=== PATIENT | female | born 2000 | race Caucasian/White ===

== ENCOUNTER 2019-07-15 10:04 | Emergency (ER) | payer BC ==
--- OUTSIDE RECORDS SUMMARY | 2019-07-15 10:28 | XMS REPORT | Continuity of Care Document ---
:2000 External Reference #:[id number] Author Name Isiah Ash JR, MD Address [address] [place] [address] Problems Active Problems Provider Date Gastroesophageal reflux disease Isiah Ash JR, MD Onset: 03/25/2018 Social History Type Date Description Comments Sex Unknown Tobacco Use Reviewed: 02/03/19 Never Smoked Cigarettes ETOH Use Rarely consumes alcohol Tobacco Use Reviewed: 02/03/19 Patient has never smoked Smoking Status Reviewed: 02/03/19 Patient has never smoked Allergies, Adverse Reactions, Alerts Active Allergies Reaction Severity Comments Date Amoxicillin Hives 03/25/2018 Cephalexin Hives 03/25/2018 Penicillin 06/26/2019 Medications Active Medications SIG Qnty Indications Ordering Date Provider Iron 1 by mouth Isiah Ash 08/29/2018 325(65Fe) mg Tablets every day MD TWIN Levocetirizine 1 by mouth 60tabs Isiah Ash 03/25/2018 Dihydrochloride every day MD TWIN 5mg Tablets Mometasone Furoate 2 sp each 17gm Isiah Ash 03/25/2018 50mcg/Act nostril every MD TWIN Suspension day Multivitamin Adult 1 by mouth 90tabs Isiah Ash 03/25/2018 Tablets every day MD TWIN Immunizations CPT Code Status Date Vaccine Lot # [id number] Given 04/04/2018 Flu, Multi-Dose Vial W/Preservative (Age 6Mo And [id number] Up)Quad 0.5 64314 Given 01/10/2017 Hepatitis A Vaccine Peds/Adoles. (To Age 19) 2 Dose Schedule 09075 Given 01/10/2017 Bexsero Meningococcal Vacc 2 Dose Schedule 58522 Given 09/21/2015 Menactra - Meningococcal Conjugate Vaccine 31897 Given 05/29/2015 Flu, Multi-Dose Vial W/Preservative (Age 6Mo And Up)Quad 0.5 21206 Given 11/30/2013 Gardasil 9, HPV Nonavalent 64730 Given 05/20/2013 Gardasil 9, HPV Nonavalent 27445 Given 03/11/2013 Gardasil 9, HPV Nonavalent 61394 Given 10/28/2009 Menactra - Meningococcal Conjugate Vaccine 49628 Given 10/27/2009 Adacel - Tdap 02087 Given 11/13/2006 Varicella (Chicken Pox) Vaccine 06829 Given 11/06/2003 MMR Vaccine 12414 Given 11/06/2003 Daptacel - DTaP Vaccine 24067 Given 11/06/2003 Clvnbdux-JYyZ-ovb/hIB 31595 Given 11/08/2000 Pneumococcal Vaccine - Prevnar 13 84449 Given 04/06/2000 Pneumococcal Vaccine - Prevnar 13 10398 Given 01/20/2000 Hib PRP-T Conjugate 4 Dose Schedule 21039 Given 01/20/2000 Shwymaaf-YShP-fzm/hIB 84191 Given 01/20/2000 MMR Vaccine 85376 Given 12/20/1999 Daptacel - DTaP Vaccine 57729 Given 10/21/1999 Varicella (Chicken Pox) Vaccine 27785 Given 07/22/1999 Hepatitis B Vaccine Pediatric/Adolescent 75157 Given 04/14/1999 Daptacel - DTaP Vaccine 25170 Given 04/14/1999 Hib PRP-T Conjugate 4 Dose Schedule 45401 Given 02/18/1999 Daptacel - DTaP Vaccine 94164 Given 02/18/1999 Girukccm-QPeC-vrs/hIB 51514 Given 02/18/1999 Hib PRP-T Conjugate 4 Dose Schedule 42058 Given 1998 Hepatitis B Vaccine Pediatric/Adolescent 64990 Given 1998 Daptacel - DTaP Vaccine 01291 Given 1998 Iuseahop-YOpD-ofc/hIB 12351 Given 1998 Rotateq - Rotavirus Vaccine Tetravalent Oral 59882 Given 1998 Hib PRP-T Conjugate 4 Dose Schedule 90376 Given 1998 Hepatitis B Vaccine Pediatric/Adolescent Vital Signs Date Vital Result Comment 06/26/2019 3:24pm BP Systolic 102 mmHg BP Diastolic 62 mmHg Heart Rate 70 /min Body Temperature 98.3 F Respiratory Rate 16 /min Weight 101.00 lb Weight 45.814 kg Height 60. inches 5'0" BMI (Body Mass Index) 19.7 kg/m2 02/03/2019 8:04pm BP Systolic 102 mmHg BP Diastolic 70 mmHg Heart Rate 70 /min Body Temperature 99.3 F Respiratory Rate 18 /min Weight 104.00 lb Weight 47.174 kg Height 60. inches 5'0" BMI (Body Mass Index) 20.3 kg/m2 Results Test Acquired Date Facility Test Result H/L Range Note CBC/Automated 06/20/2019 [facility] WBC 5.93 k/uL 4.60-10.20 Differential Abs Neut 3.69 2.00-7.50 % Neut 62.2 % 37.0-80.0 Abs Lymphs 1.42 K/UL 1.20-4.80 % Lymphs 24.0 % 10.0-50.0 Abs Monos 0.558 0.000-0.900 % Monos 9.42 % 0.00-12.00 Abs Eos 0.185 0.000-0.700 % Eos 3.11 % 0.00-7.00 Abs Basos 0.072 0.000-0.200 % Baso 1.22 % 0.00-4.00 RBC 5.39 m/uL 4.04-6.13 Hemoglobin 14.2 g/dL 12.2-18.1 Hematocrit 44.9 % 37.7-47.0 MCV 83.3 fL 80.0-97.0 MCH 26.3 pg Low 27.0-31.2 MCHC 31.6 g/dL Low 31.8-35.4 RDW 13.1 % 11.6-14.8 Platelet 274 K/uL 142-424 MPV 10.3 fL 0.0-99.9 Laboratory test finding 06/20/2019 [facility] Iron 70.00 g/dL 25.00- 156.00 Laboratory test finding 02/05/2019 [facility] Iron 166.00 g/dL High 25.00-156.00 Iron Binding Capacity 415 g/dL (250-450) 1 CBC/Automated Differential 02/05/2019 [facility]BC 8.35 k/uL 4.60- 10.20 Abs Neut 5.83 2.00-7.50 % Neut 69.8 % 37.0-80.0 Abs Lymphs 1.53 K/UL 1.20-4.80 % Lymphs 18.4 % 10.0-50.0 Abs Monos 0.767 0.000-0.900 % Monos 9.18 % 0.00-12.00 Abs Eos 0.150 0.000-0.700 % Eos 1.79 % 0.00-7.00 Abs Basos 0.070 0.000-0.200 % Baso 0.83 % 0.00-4.00 RBC 5.32 m/uL 4.04-6.13 Hemoglobin 14.4 g/dL 12.2-18.1 Hematocrit 44.5 % 37.7-47.0 MCV 83.7 fL 80.0-97.0 MCH 27.1 pg 27.0-31.2 MCHC 32.3 g/dL 31.8-35.4 RDW 12.1 % 11.6-14.8 Platelet 337 K/uL 142-424 MPV 8.3 fL 0.0-99.9 Laboratory test 02/03/2019 [facility] Iron Binding 382 g/dL (250-450) 2 finding Capacity Iron 37.00 g/dL 25.00-156.00 Comprehensive Metabolic 02/03/2019 [facility] Glucose 80.00 mg/dL 70.00- 110.00 Panel Urea Nitrogen 10 mg/dL 7-19 Creatinine 0.7 mg/dL 0.6-1.1 GFR 116.88 mL/min 3 Sodium 137 mmol/L 136-145 Potassium 4.2 mmol/L 3.5-5.1 Chloride 104 mmol/L 98-107 Total Protein 7.1 g/dL 6.4-8.3 Albumin 4.30 g/dL 3.30-5.00 Alanine Aminotransferase 14 U/L 0-55 Aspartate Aminotransferase 17 U/L 5-34 Alkaline Phosphatase 67 U/L 40-150 Carbon Dioxide 25.00 mmol/L 22.00-31.00 Albumin/Globulin 1.54 Ratio Osmolality 282.02 275.00-295.00 Calcium 9.60 mg/dL 8.90-10.40 Total Bilirubin 0.4 mg/dL 0.2-1.2 Globulin 2.80 2.30-4.20 BUN/Creatinine 14.71 Ratio CBC/Automated Differential 01/16/2019 [facility] WBC 9.26 k/uL 4.60- 10.20 Abs Neut 5.80 2.00-7.50 % Neut 62.7 % 37.0-80.0 Abs Lymphs 2.32 K/UL 1.20-4.80 % Lymphs 25.1 % 10.0-50.0 Abs Monos 0.876 0.000-0.900 % Monos 9.46 % 0.00-12.00 Abs Eos 0.166 0.000-0.700 % Eos 1.79 % 0.00-7.00 Abs Basos 0.094 0.000-0.200 % Baso 1.01 % 0.00-4.00 RBC 5.51 m/uL 4.04-6.13 Hemoglobin 15.2 g/dL 12.2-18.1 Hematocrit 45.9 % 37.7-47.0 MCV 83.2 fL 80.0-97.0 MCH 27.6 pg 27.0-31.2 MCHC 33.1 g/dL 31.8-35.4 RDW 12.6 % 11.6-14.8 Platelet 292 K/uL 142-424 MPV 9.4 fL 0.0-99.9 Comprehensive Metabolic 01/16/2019 [facility] Glucose 74.00 mg/dL 70.00- 110.00 Panel Urea Nitrogen 9 mg/dL 7-19 Creatinine 0.7 mg/dL 0.6-1.1 GFR 113.09 mL/min 4 Sodium 138 mmol/L 136-145 Potassium 4.5 mmol/L 3.5-5.1 Chloride 104 mmol/L 98-107 Total Protein 7.7 g/dL 6.4-8.3 Alb P 4.60 g/dL 3.30-5.00 Alanine Aminotransferase 12 U/L 0-55 Aspartate Aminotransferase 15 U/L 5-34 Alkaline Phosphatase 77 U/L 40-150 Carbon Dioxide 28.00 mmol/L 22.00-31.00 Albumin/Globulin 1.48 Ratio Osmolality 283.33 275.00-295.00 Calcium 10.30 mg/dL 8.90-10.40 Total Bilirubin 0.4 mg/dL 0.2-1.2 Globulin 3.10 2.30-4.20 BUN/Creatinine 12.86 Ratio 1 Unless otherwise specified, testing performed by [facility] [address] [place] [id number] 2 Unless otherwise specified, testing performed by [facility] [address] [place] [id number] 3 NORMAL FUNCTION OR MILD RENAL DISEASE:>60 ml/min ADVANCED RENAL DISEASE:15-59 ml/min RENAL FAILURE:<15 ml/min 4 NORMAL FUNCTION OR MILD RENAL DISEASE:>60 ml/min ADVANCED RENAL DISEASE:15-59 ml/min RENAL FAILURE:<15 ml/min Procedures Description No Information Available Medical Devices Description No Information Available Encounters Type Date Location Provider Dx Diagnosis Office Visit 06/26/2019 [address] Isiah Ash JR E61.1 Iron deficiency 2:30p MD Office Visit 02/03/2019 [address] Isiah Ash JR E61.1 Iron deficiency 3:15p MD Assessments Date Code Description Provider 06/26/2019 E61.1 Iron deficiency Isiah Ash JR, MD 06/20/2019 E61.1 Iron deficiency Isiah Ash JR, MD 02/05/2019 E61.1 Iron deficiency Isiah Ash JR, MD 02/03/2019 M79.601 Pain in right arm Omar Lehman MD 02/03/2019 E61.1 Iron deficiency Isiah Ash JR, MD 01/16/2019 E61.1 Iron deficiency Isiah Ash JR, MD 01/16/2019 N92.0 Excessive and frequent menstruation with Isiah Ash JR, MD regular cycle 01/16/2019 K21.9 Gastro-esophageal reflux disease without Isiah Ash JR, MD esophagitis Plan of Treatment Future Appointment(s):12/15/2019 2:00 pm - Isiah Ash JR, MD at [address]12/05/2019 10:00 am - Isiah Ash JR, MD at [address]06/26/2019 - Isiah Ash JR, MDE61.1 Iron deficiencyNew Labs:CBC/Automated Differential , Scheduled: 06/26/19Iron, Scheduled: 06/26/19Iron Binding Capacity[I], Scheduled: 06/26/19Comments:Continue taking the iron supplement and the multivitamin. we will redraw iron panel today Functional Status Functional Condition Comment Date Status Glasses Active Mental Status Description No Information Available Referrals Description No Information Available
--- OUTSIDE RECORDS SUMMARY | 2019-07-15 10:28 | XMS REPORT | Continuity of Care Document ---
:2000 External Reference #:[id number] Author Name Isiah Ash JR, MD Address [address] [place] [address] Problems Active Problems Provider Date Gastroesophageal reflux [...] CPT Code Status Date Vaccine Lot # [id number] Given 04/04/2018 Flu, Multi-Dose Vial W/Preservative (Age 6Mo And [id number] Up)Quad 0.5 27659 Given 01/10/2017 Hepatitis A Vaccine Peds/Adoles. (To Age 19) 2 Dose Schedule 51270 Given 01/10/2017 Bexsero Meningococcal Vacc 2 Dose Schedule 02359 Given 09/21/2015 Menactra - Meningococcal Conjugate Vaccine 22808 Given 05/29/2015 Flu, Multi-Dose Vial W/Preservative (Age 6Mo And Up)Quad 0.5 78457 Given 11/30/2013 Gardasil 9, HPV Nonavalent 68123 Given 05/20/2013 Gardasil 9, HPV Nonavalent 74388 Given 03/11/2013 Gardasil 9, HPV Nonavalent 14123 Given 10/28/2009 Menactra - Meningococcal Conjugate Vaccine 28189 Given 10/27/2009 Adacel - Tdap 55180 Given 11/13/2006 Varicella (Chicken Pox) Vaccine 54545 Given 11/06/2003 MMR Vaccine 93913 Given 11/06/2003 Daptacel - DTaP Vaccine 17290 Given 11/06/2003 Xsegahxi-OVlT-tmk/hIB 13561 Given 11/08/2000 Pneumococcal Vaccine - Prevnar 13 78011 Given 04/06/2000 Pneumococcal Vaccine - Prevnar 13 60809 Given 01/20/2000 Hib PRP-T Conjugate 4 Dose Schedule 31578 Given 01/20/2000 Oeyuajpa-YLyB-zii/hIB 70905 Given 01/20/2000 MMR Vaccine 75279 Given 12/20/1999 Daptacel - DTaP Vaccine 14172 Given 10/21/1999 Varicella (Chicken Pox) Vaccine 29107 Given 07/22/1999 Hepatitis B Vaccine Pediatric/Adolescent 82970 Given 04/14/1999 Daptacel - DTaP Vaccine 22439 Given 04/14/1999 Hib PRP-T Conjugate 4 Dose Schedule 17279 Given 02/18/1999 Daptacel - DTaP Vaccine 65731 Given 02/18/1999 Rbxjuarz-MSsP-zxl/hIB 83158 Given 02/18/1999 Hib PRP-T Conjugate 4 Dose Schedule 75689 Given 1998 Hepatitis B Vaccine Pediatric/Adolescent 63250 Given 1998 Daptacel - DTaP Vaccine 25201 Given 1998 Yltpdqrn-TXnZ-iht/hIB 44767 Given 1998 Rotateq - Rotavirus Vaccine Tetravalent Oral 69303 Given 1998 Hib PRP-T Conjugate 4 Dose Schedule 94294 Given 1998 Hepatitis B Vaccine Pediatric/Adolescent Vital [...] Unless otherwise specified, testing performed by [facility] [address] [place] [id number] 2 Unless otherwise specified, testing performed by [facility] [address] [place] [id number] 3 NORMAL FUNCTION OR MILD RENAL DISEASE:>60 [...]
[2019-07-15 10:43] LABS: Hematocrit 43 % (35-47); Hemoglobin 14.4 g/dL (12.0-16.0); Mean Corpuscular HGB Conc 33 g/dL (31-36); Mean Corpuscular Hemoglobin 27 pg (27-31); Mean Corpuscular Volume 82 fL (80-97); Mean Platelet Volume 9.1 fL (7.4-10.4); Platelet Count 305 10^3/uL (150-450); Red Blood Count 5.29 10^6 /uL (3.70-4.87); Red Cell Distribution Width 15 % (10-15); White Blood Count 7.1 10^3/uL (3.5-10.8)
[2019-07-15 10:57] LABS: INR 1.03 (0.82-1.09)
[2019-07-15 11:00] LABS: Albumin 4.8 g/dL (3.2-5.2); Albumin/Globulin Ratio 1.6 (1-3); BUN/Creatinine Ratio 14.3 (8-20); Calcium 10.3 mg/dL (8.6-10.3); EGFR African American 129.1 (>60); EGFR Non-African American 106.7 (>60); Potassium 4.1 mmol/L (3.5-5.0); Total Bilirubin 0.7 mg/dL (0.2-1.0); Total Protein 7.8 g/dL (6.4-8.9)
[2019-07-15 11:20] LABS: ABS Basophils 0.1 10^3/ul (0-0.2); ABS Eosinophils 0.1 10^3/ul (0-0.6); ABS Lymphocytes 1.6 10^3/ul (1.0-4.8); ABS Monocytes 0.9 10^3/ul (0-0.8); ABS Neutrophils 4.6 10^3/ul (1.5-7.7); Eosinophil % 1.5 %; Large Platelets Present
[2019-07-15 13:15] VITALS: BP 104/84
--- NOTE | 2019-07-15 13:25 | ED ---
HPI Chest Pain - HPI Summary HPI Summary: This patient is a 18-year-old female presenting to the ED with feeling of chest pain worse with leaning forward and to palpation. Denies any change with rest. Pt has a significant PMH of "leaky valve" and this concerned her. 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 She is unsure which valve is involved. Symptoms began this morning upon wakening. She has never had this before. She states she feels otherwise well. No medications. No recent travel. No leg pain, no OCP use. Last ECHO and EKG (performed every 2 years) was last year and normal. Pt is a non-smoker and has no other health problems. Denies any SOB or abd pain. Denies any CAMACHO or visual changes. Denies feeling weak, or lightheaded. - History of Current Complaint Chief Complaint: EDChestPainROMI Time Seen by Provider: 07/15/19 11:42 Hx Obtained From: Patient Onset/Duration: Started Hours Ago Timing: Constant Initial Severity: Mild Current Severity: Mild Pain Intensity: 1 Pain Scale Used: 0-10 Numeric Chest Pain Location: Mid Sternal Chest Pain Radiates: No Character: Dull/Aching Aggravating Factor(s): Position Alleviating Factor(s): Nothing Associated Signs and Symptoms: Positive: Negative - Risk Factors Pulmonary Embolism Risk Factors: Negative TAD Risk Factors: Negative - Allergy/Home Medications Allergies/Adverse Reactions: Allergies Allergy/AdvReac Type Severity Reaction Status Date / Time betalactams Allergy Hives Uncoded 07/15/19 10:14 PMH/Surg Hx/FS Hx/Imm Hx Previously Healthy: Yes Cardiovascular History: Reports: Other Cardiovascular Problems/Disorders - LEAKY VALVE - Immunization History Hx Pertussis Vaccination: No Immunizations Up to Date: Yes Infectious Disease History: No Infectious Disease History: Denies: Traveled Outside the [place] in Last 30 Days - Social History Occupation: Student Lives: With Family Alcohol Use: Occasionally Hx Substance Use: No Substance Use Type: Reports: None Smoking Status (MU): Never Smoked Tobacco Review of Systems Negative: Fever, Chills, Fatigue, Skin Diaphoresis Positive: Chest Pain - midsternal chest pain - described as an ache Negative: Shortness Of Breath, Cough Negative: Arthralgia, Myalgia Negative: Rash, Bruising Neurological: Negative All Other Systems Reviewed And Are Negative: Yes Physical Exam Triage Information Reviewed: Yes Vital Signs On Initial Exam: Initial Vitals Temp Pulse Resp BP Pulse Ox 98.7 F 98 18 126/87 100 07/15/19 10:12 07/15/19 10:12 07/15/19 10:12 07/15/19 10:12 07/15/19 10:12 Vital Signs Reviewed: Yes Appearance: Positive: Well-Appearing, Well-Nourished Skin: Positive: Warm, Skin Color Reflects Adequate Perfusion Head/Face: Positive: Normal Head/Face Inspection Eyes: Positive: EOMI, MARLEN, Conjunctiva Clear Neck: Positive: Supple, No Lymphadenopathy Respiratory/Lung Sounds: Positive: Clear to Auscultation, Breath Sounds Present Cardiovascular: Positive: RRR, Pulses are Symmetrical in both Upper and Lower Extremities. Negative: Leg Edema Left, Leg Edema Right Bowel Sounds: Positive: Present Musculoskeletal: Positive: Normal, Strength/ROM Intact Neurological: Positive: Sensory/Motor Intact, Alert, Oriented to Person Place, Time, Speech Normal Psychiatric: Positive: Normal, Affect/Mood Appropriate AVPU Assessment: Alert Procedures - Sedation Patient Received Moderate/Deep Sedation with Procedure: No Diagnostics - Vital Signs Vital Signs Temp Pulse Resp BP Pulse Ox 07/15/19 12:05 75 07/15/19 12:00 79 16 97 07/15/19 11:58 77 17 128/89 98 07/15/19 11:46 81 100 07/15/19 10:12 98.7 F 98 18 126/87 100 - Laboratory Lab Results: Lab Results 07/15/19 07/15/19 07/15/19 Range/Units 10:29 10:29 10:29 WBC 7.1 (3.5-10.8) 10^3/uL RBC 5.29 H (3.70-4.87) 10^6 /uL Hgb 14.4 (12.0-16.0) g/dL Hct 43 (35-47) % MCV 82 (80-97) fL MCH 27 (27-31) pg MCHC 33 (31-36) g/dL RDW 15 (10-15) % Plt Count 305 (150-450) 10^3/uL MPV 9.1 (7.4-10.4) fL Neut % (Auto) 63.8 % Lymph % (Auto) 22.0 % Pepin % (Auto) 12.0 % Eos % (Auto) 1.5 % Baso % (Auto) 0.7 % Absolute Neuts (auto) 4.6 (1.5-7.7) 10^3/ul Absolute Lymphs (auto) 1.6 (1.0-4.8) 10^3/ul Absolute Monos (auto) 0.9 H (0-0.8) 10^3/ul Absolute Eos (auto) 0.1 (0-0.6) 10^3/ul Absolute Basos (auto) 0.1 (0-0.2) 10^3/ul Absolute Nucleated RBC 0.0 10^3/ul Nucleated RBC % 0.0 Large Platelets Present INR (Anticoag Therapy) 1.03 (0.82-1.09) D-Dimer, Quantitative < 200 (Less Than 230) ng/mL Sodium 138 (135-145) mmol/L Potassium 4.1 (3.5-5.0) mmol/L Chloride 105 (101-111) mmol/L Carbon Dioxide 26 (22-32) mmol/L Anion Gap 7 (2-11) mmol/L BUN 10 (6-24) mg/dL Creatinine 0.70 (0.51-0.95) mg/dL Est GFR ( Amer) 129.1 (>60) Est GFR (Non-Af Amer) 106.7 (>60) BUN/Creatinine Ratio 14.3 (8-20) Glucose 82 (70-100) mg/dL Calcium 10.3 (8.6-10.3) mg/dL Total Bilirubin 0.70 (0.2-1.0) mg/dL AST 15 (13-39) U/L ALT 10 (7-52) U/L Alkaline Phosphatase 63 (34-104) U/L Troponin I 0.00 (<0.03) ng/mL Total Protein 7.8 (6.4-8.9) g/dL Albumin 4.8 (3.2-5.2) g/dL Globulin 3.0 (2-4) g/dL Albumin/Globulin Ratio 1.6 (1-3) Result Diagrams: 07/15/19 10:29 07/15/19 10:29 Lab Statement: Any lab studies that have been ordered have been reviewed, and results considered in the medical decision making process. Chest Pain Course/Dx - Course Course Of Treatment: This patient is evaluated for midsternal chest achiness which radiates from the sternum to the bilateral sides of the upper chest. She states this is mild, rating it a 1/10. She states worse with touch to the chest and leaning forward. Better with nothing. Pt appears well. VS stable. Appears in NAD, smiling and c/o 1/10 discomfort, not worse or better since this morning. Concerned d/t her "leaky valve." EKG shows no acute findings, NSR, normal rate. Labs are unremarkable including 2 negative trops. D dimer negative. Heart score = 1. Low risk of MACE. Pt continues to feel OK and discussed possible etiologies for the discomfort. She is given information on costochondritis, and encouraged ibpurofen. However, she will call her operations administrator today for a close follow up. Discussed this case with Dr. Rowland. - Chest Pain Differential Diagnosis/HQI/PQRI: Angina, Chest Wall - Diagnoses Provider Diagnoses: Atypical chest pain Discharge ED - Sign-Out/Discharge Documenting (check all that apply): Patient Departure - Discharge Plan Condition: Stable Disposition: HOME Patient Education Materials: Costochondritis (ED) Referrals: No Primary Care Phys,NOPCP [Primary Care Provider] - Additional Instructions: As discussed, please call your cigar packer and grader Unable to really tell what your symptoms are specifically from, I have given you information regarding costochondritis which could be a possible reason There were no abnormal findings on your visit today Ibuprofen 600mg three times daily for any discomfort If you develop any changing symptoms, please return to the ED immediately - Billing Disposition and Condition Condition: STABLE Disposition: Home - Attestation Statements Provider Attestation: I have seen the patient with the ROE and agree with the plan and documentation below except as noted: This is a 18 y/o female presenting with episodes of chest pain. Prior cardiac history with "leaky" valve. Heart score 1. EKG unremarkable. Tom Rowland MD
== END 2019-07-15 13:14 | disposition home or self-care (01) ==
LOC: ED 10:04
DX: R07.89 Other chest pain (principal); Z88.1 Allergy status to other antibiotic agents
CPT/HCPCS: 36415; 71046; 80053; 84484; 85025; 85379; 85610; 93005; 99282